=== PATIENT | female | born 1950 | race African-American/Black ===

== ENCOUNTER 2017-07-31 00:57 | Inpatient (IN) | payer MEDICARE, MEDICAID ==
[2017-07-31 02:32] LABS: Hemoglobin 3.3 g/dL (12.0-16.0)
[2017-07-31 02:44] LABS: #Basophils 0.1 thou/uL (0.0-0.2); #Eosinphils 0.1 thou/uL (0.0-0.7); #Lymphocytes 4.7 thou/uL (1.20-3.40); #Monocytes 0.5 thou/uL (0.11-0.59); #Neutrophils 8.1 thou/uL (1.40-6.50); %Basophils 0.7 % (0.0-1.0); %Eosinophils 0.5 % (0.0-10.0); %Lymphocytes 34.9 % (21.0-51.0); %Monocytes 3.9 % (0.0-10.0); %Neutrophils 60.1 % (42.0-75.0); Band 2 % (5-11); Hypochromia MARKED = >30 cells (100X) (0-5/hpf); Lymphocytes 25 % (21-51); MDiff Complete? YES; Mean Corpuscular HGB CONC 26.4 g/dL (32.0-36.0); Mean Corpuscular Hemoglobin 15.7 pg (27.0-31.0); Mean Corpuscular Volume 59.3 fl (81.0-99.0); Microcytosis MODERATE=15-30 cells (100X) (0-5/hpf); Monocytes 3 % (0-10); Neutrophil 68 % (42-75); PLT Morphology Comment Appears Adequate; Platelet Count 385 thou/uL (130-400); Red Blood Cell (RBC) Count 2.09 mill/uL (4.20-5.40); Reflex for Review?? YES; Tear Drops SLIGHT = 2-5 cells (100X) (0-1/hpf); White Blood Cell (WBC) Count 13.4 thou/uL (4.8-10.8)
[2017-07-31] MEDS ORDERED: Ondansetron HCl/PF 4 MG/2 ML Vial IVP PRN ×2 (03:36→04:50)
[2017-07-31] MEDS ORDERED: Ondansetron ODT 4 MG TAB SL PRN (03:36)
[2017-07-31] MEDS ORDERED: Sodium Chloride 0.9% 1,000 ML IV SCH (03:36)
[2017-07-31] MEDS ORDERED: Acetaminophen 325 MG TAB PO PRN ×2 (03:36→04:50)
[2017-07-31 03:41] VITALS: BMI 20.8
[2017-07-31] MEDS ORDERED: HYDROcodone/Acetaminophen 10/325 mg Tablet PO PRN (04:50)
[2017-07-31] MEDS ORDERED: HYDROcodone/Acetaminophen 5/325 mg Tablet PO PRN (04:50)
[2017-07-31] MEDS ORDERED: Ondansetron ODT 4 MG TAB PO PRN (04:50)
[2017-07-31 05:29] LABS: Iron Less than 8 ug/dL (50-170); Iron Binding Capacity, Total 290 mcg/dL (265-497)
[2017-07-31] MEDS: Sodium Chloride 0.9% 1,000 ML IV SCH ×2 (07:00→15:09)
[2017-07-31] MEDS: Famotidine/PF 20 mg/2ml Vial SLOW IVP SCH ×2 (08:23→20:11)
--- NOTE | 2017-07-31 11:29 | CT ---
CT ABDOMEN WITH CONTRAST CT PELVIS WITH CONTRAST: DATE: 07/31/17. TIME: 8:47 a.m. HISTORY: A 67-year-old female with generalized abdominal pain, anorexia, severe anemia. Rule out cancer. COMPARISON: None. TECHNIQUE: IV injection of iodinated contrast media: 100 mL of Isovue 370. Oral contrast media: Redicat. FINDINGS: The stomach is distended with a large volume of oral contrast media, superior to which there is a lay er of nonopacified ingested fluid contents mixed with air, superior to which there is a large volume of nondependent gas. Oral contrast material is present within the lumen of the gastric pylorus, whic h appears to be narrowed by mural thickening of the pylorus. This thickened pylorus appears to be of low attenuation, which is suggestive of edema. Alternatively, this could represent neoplasm. There are multiple moderately enlarged tha hepatis lymph nodes and mildly enlarged retroperitoneal lymph nodes adjacent to the aorta. The largest tha hepatis lymph node is approximately 2.5 x 1.5 x 2 cm (axial image 18 of 88, series 2; coronal image 49 of 123, series 601), and appears to have a ne crotic center. There are additional multiple suspicious-appearing, enlarged celiac axis lymph nodes. There is low attenuation throughout the gastrohepatic ligament. This could be edema or free fluid. The pancreas has a nonspecific, slightly heterogeneous attenuation, and is mildly posteriorly oziel sed by the distended stomach. There is a layer of low attenuation material, which could represent fr ee fluid, loculated fluid pocket, or intramural edema in the posterior gastric wall, with density of 42 HU, located between the stomach and the pancreatic body and tail. The oral contrast material is present throughout nondilated loops of small intestine within the abdom inal cavity and pelvic cavity. It has not yet reached the colon. Noninflamed segments of the append ix are visualized. There is a small amount of free fluid in the left paracolic gutter. There is an approximately 3 x 2 x 2 cm collection of low-density material (approximately 20 HU) in the left side of the cul-de-sac/ad nexa. This could be free fluid or a cystic lesion. Free fluid is slightly favored. A large amount of stool throughout the colon, especially in the rectum. Gallbladder is contracted. There is no portal vein thrombosis. No splenomegaly. Heavy atherosclerotic calcification of the abd ominal aorta without aneurysm. No hydronephrosis of the bilateral kidneys. No adrenal mass. The attenuation of hepatic segment 3 and 2 are slightly higher than that of the rest of the liver, wh ich is of slightly lower attenuation. There are a few small hypodense lesions in hepatic segment 3 o f the left lobe, each one slightly less than 1 cm in size, too small to definitively characterize. T hey could represents cysts. No discrete lesion is identified in the right lobe of the liver. No manny tructive osseous lesion is identified. There is moderate DJD of the right hip, and mild DJD of the l eft hip. No pleural effusion. IMPRESSION: 1. Mural thickening (edema versus tumor) of the pylorus, causing at least mild narrowing of the lume n of the pylorus, and causing gastric distention. 2. Low-attenuation material throughout the tha hepatis and along the gastrohepatic ligament region which appears to be edema. 3. multiple, pathologic tha hepatis and celiac lymph nodes, suspicious for malignancy. 4. Small volume of ascites. BAYLEE Diggs POS: [facility]
--- NOTE | 2017-07-31 12:29 | HP ---
DATE OF ADMISSION: 07/31/2017 TIME OF SERVICE: 03:45. CHIEF COMPLAINT: Weakness. HISTORY OF PRESENT ILLNESS: Ms. Guzman is a 67-year-old Citizen Of [place] female, who with a history of hig h blood pressure that she does not take medicines for, rarely goes to the doctor. She has no primary care physician and was seen as a city call patient. Patient presents to the emergency department today for 3 months of increasing weakness and fatigue th at seemed getting even worse over the last 3 weeks. She describes a several-day history of fatigue t o the point where she did not really feel like doing anything at all and decided to come to the emerg ency department for evaluation. In the emergency department, workup showed chemistries were fairly normal. However, her hemoglobin a t the outside emergency department was 3.8. She was transferred here for further workup and evaluati on. On arrival here, she was afebrile with stable vital signs. Repeat CBC showed her hemoglobin down to 3.3 after receiving the fluids. We were called for admission. The patient denies any GI bleeding, no chest pain, no shortness of breath. She has had some epigastr ic pain that seemed to go up in the chest a little bit on occasion. During those times she will beco me nauseated and threw up some brown material that was not foul smelling. She denied any bright red blood in her vomitus, denied any coffee-ground emesis. She has not had any lower GI bleeding, melena , or hematochezia. She states, for the last several months, she has had this epigastric pain and nausea and vomiting, ortiz s really been unable to eat and has not had any appetite. She states she lost around 100 pounds over the last 3-4 months. She has had no other current complaints. PAST MEDICAL HISTORY: Hypertension. PAST SURGICAL HISTORY: Include x1. HOME MEDICATIONS: None. She takes Advil as needed. ALLERGIES: NKDA. FAMILY HISTORY: Negative for clotting or bleeding disorder. No immune dysfunction. Her mom in her 30s of some sort of cancer. SOCIAL HISTORY: Significant for tobacco, about 1 pack a day for 30 years or so. No alcohol or IV dr ugs. REVIEW OF SYSTEMS: A 10-point review of systems was performed, negative for all other systems except as stated as per HPI. PHYSICAL EXAMINATION: VITAL 1SIGNS: Temperature 98.9, pulse 96, blood pressure 145/64, respiratory rate 16, satting 100% o n room air. GENERAL: She is awake. She is alert. She is oriented x3. She is a cachectic-looking chronically i ll-appearing -Citizen Of [place] female. She is not in any acute distress. HEENT: Normocephalic, atraumatic. Pupils are equal and reactive bilaterally. Mucous membranes are moist. Teeth are in poor repair. NECK: Supple. She had no lymphadenopathy, JVD, or thyromegaly. LUNGS: Clear to auscultation bilaterally. There are no wheezes, no rales, no rhonchi. No prolonged expiratory phase. CARDIOVASCULAR: She is normocardic and regular. She does have a 2/6 systolic ejection murmur, best heard at the right upper sternal border. ABDOMEN: Soft; it is nontender. She has good bowel sounds in all 4 quadrants. EXTREMITIES: Show no cyanosis, no clubbing, and no edema. SKIN: Warm, moist, well perfused. It hangs very loosely on her frame. MUSCULOSKELETAL: Exam is normal to inspection. Large joints appear uninflamed; there are no palpabl e effusions. NEUROLOGIC: Cranial nerves II-XII grossly intact without any focal neurologic deficits. She has 4/5 strength in all 4 of her extremities. Speech pattern is normal. LABORATORY DATA: Sodium 133, potassium 3.4, chloride 96, bicarbonate 25, BUN 9, creatinine 0.74. Gl ucose 104. Calcium 8.6. Magnesium normal at 1.9 and phosphorus 4.0. Liver function normal except f or an albumin of 2.9. CBC here showed a white count of 13.4, down from 15.4 at the outside ER; hemoglobin 3.3, down from 3. 8; and hematocrit of 12.4. Platelet count is 388,461. She has 60% granulocytes, 2% bands, 25% lymph ocytes. Her BNP was normal at 86.7, CK-MB normal at 0.5, troponin I undetectable, lipase 35. IMAGING: Brain CT showed no acute intracranial abnormalities. Chest x-ray showed aortic arch calcif ications, but otherwise unremarkable. ASSESSMENT AND PLAN: 1. Severe anemia. She is microcytic and hyperchromic. I will get iron studies, and she is going to get 3 units of blood transfused. She does not appear to have any acute blood loss. We will supplem ent iron if her iron stores are depleted, which I suspect they are. Given that she is not eating wel l and has lost 100 pounds, that could certainly have an impact. 2. Severe protein-calorie malnutrition as above. 3. Hypertension, not on any current medications. We will watch. 4. Anorexia: We will get a CT scan of the abdomen and pelvis with contrast. Given her marked weigh t loss, recurrent nausea and vomiting, severe anemia, I certainly suspect there may be an occult avtar gnancy. We will search.
--- NOTE | 2017-07-31 13:14 | PDOC.PN ---
- Subjective Encounter Start Date: 07/31/17 Encounter Start Time: 09:00 Subjective: recieving blood 2nd unit -: no sob, has progressively lost weight -: no bleeding per rectum or vagina - Objective Resuscitation Status: Resuscitation Status FULL:Full Resuscitation MAR Reviewed: Yes Vital Signs & Weight: Vital Signs (12 hours) Temp Pulse Pulse Resp BP BP BP 07/31/17 12:04 99.5 F 80 16 146/65 H 07/31/17 11:54 98.8 F 83 16 102/53 L 07/31/17 11:40 98.7 F 83 16 07/31/17 09:55 99.0 F 88 16 136/70 07/31/17 09:40 99.2 F 85 15 102/46 L 07/31/17 07:15 99.4 F 86 16 07/31/17 07:00 99.4 F 86 86 16 116/69 07/31/17 04:07 99.2 F 100 18 128/60 07/31/17 03:54 99.4 F 106 H 18 145/66 H 07/31/17 03:34 99.2 F 106 H 18 BP Pulse Ox 07/31/17 12:04 100 07/31/17 11:54 100 07/31/17 11:40 139/63 100 07/31/17 09:55 100 07/31/17 09:40 100 07/31/17 07:15 100 07/31/17 07:00 116/69 100 07/31/17 04:07 07/31/17 03:54 07/31/17 03:34 100 I&O: 07/30/17 07/31/17 08/01/17 06:59 06:59 06:59 Intake Total 0 1110 Balance 0 1110 Result Diagrams: 07/31/17 01:54 Phys Exam - Physical Examination HEENT: PERRLA, sclera anicteric pallor+ Neck: no JVD, supple Respiratory: no wheezing, no rales rhonchi+ Cardiovascular: RRR, no significant murmur Gastrointestinal: soft, non-tender, no distention, positive bowel sounds Musculoskeletal: no edema, pulses present Neurological: non-focal, moves all 4 limbs Psychiatric: A&O x 3 Dx/Plan (1) Severe anemia Code(s): D64.9 - ANEMIA, UNSPECIFIED Status: Acute Comment: iron def (2) Gastric outlet obstruction Code(s): K31.1 - ADULT HYPERTROPHIC PYLORIC STENOSIS Status: Acute (3) Weight loss Status: Chronic (4) HTN (hypertension) Code(s): I10 - ESSENTIAL (PRIMARY) HYPERTENSION Status: Chronic Qualifiers: Hypertension type: essential hypertension Qualified Code(s): I10 - Essential (primary) hypertension (5) Tobacco abuse Code(s): Z72.0 - TOBACCO USE Status: Chronic - Plan CT abd results noted -: d/w -: will get CT chest as well in view of chronic smoking -: h/h after the 3rd unit of blood -: serum iron is less than 8, ferritin 13, mcv is 59 * . Review of Systems - Medications/Allergies Allergies/Adverse Reactions: Allergies Allergy/AdvReac Type Severity Reaction Status Date / Time No Known Allergies Allergy Verified 07/31/17 03:35 Medications: Current Medications Acetaminophen (Tylenol) 650 mg PO Q4H PRN PRN Reason: Headache/Fever or Pain Hydrocodone Bitart/Acetaminophen ([place] 10/325) 1 tab PO Q4H PRN PRN Reason: Severe Pain (7-10) Hydrocodone Bitart/Acetaminophen ([place] 5/325) 1 tab PO Q4H PRN PRN Reason: Moderate Pain (4-6) Famotidine (Pepcid) 20 mg SLOW IVP Q12HR [facility] Last Admin: 07/31/17 08:23 Dose: 20 mg Sodium Chloride (Normal Saline 0.9%) 1,000 mls @ 100 mls/hr IV .Q10H [facility] Last Admin: 07/31/17 07:00 Dose: 1,000 mls Influenza Virus Vaccine (Fluzone High-Dose Syr) 0.5 ml IM .ONCE ONE Stop: 08/01/17 09:01 Ondansetron HCl (Zofran Odt) 4 mg PO Q6H PRN PRN Reason: Nausea/Vomiting Ondansetron HCl (Zofran) 4 mg IVP Q6H PRN PRN Reason: Nausea/Vomiting Pneumococcal Polyvalent Vaccine (Pneumovax 23) 0.5 ml IM .ONCE ONE Stop: 08/01/17 09:01 Sodium Chloride (Flush - Normal Saline) 10 ml IVF PRN PRN PRN Reason: Saline Flush
[2017-07-31] MEDS ORDERED: Furosemide 20 MG/2 ML VIAL SLOW IVP SCH (15:00)
[2017-07-31 16:28] LABS: #Basophils 0.1 thou/uL (0.0-0.2); #Eosinphils 0.1 thou/uL (0.0-0.7); #Monocytes 0.6 thou/uL (0.11-0.59); #Neutrophils 8.5 thou/uL (1.40-6.50); %Basophils 0.9 % (0.0-1.0); %Eosinophils 0.9 % (0.0-10.0); %Lymphocytes 38.8 % (21.0-51.0); %Monocytes 4.2 % (0.0-10.0); %Neutrophils 55.2 % (42.0-75.0); Hemoglobin 8.6 g/dL (12.0-16.0); Mean Corpuscular HGB CONC 29.1 g/dL (32.0-36.0); Mean Corpuscular Hemoglobin 22.2 pg (27.0-31.0); Mean Corpuscular Volume 76.1 fl (81.0-99.0); Mean Platelet Volume 10.1 fL (7.4-10.4); Platelet Count 352 thou/uL (130-400); RBC Distribution Width 25.6 % (11.5-14.5); Red Blood Cell (RBC) Count 3.87 mill/uL (4.20-5.40); White Blood Cell (WBC) Count 15.4 thou/uL (4.8-10.8)
[2017-07-31 16:46] LABS: Anisocytosis MODERATE=16-30 cells (100X) (0-5/hpf); Bite Cells SLIGHT = 2-5 cells (100X) (0-1/hpf); Hypochromia MODERATE=16-30 cells (100X) (0-5/hpf); MDiff Complete? YES; Microcytosis SLIGHT = 6-15 cells (100X) (0-5/hpf); Ovalocytes SLIGHT = 2-5 cells (100X) (0-1/hpf); PLT Morphology Comment Appears Adequate; Poikilocytosis SLIGHT = 6-15 cells (100X) (0-5/hpf); Polychromasia MODERATE = 3-4 cells (100X) (0-2/hpf); Schistocytes SLIGHT = 2-5 cells (100X) (0-1/hpf); Target Cells MODERATE= 6-15 cells (100X) (0-1/hpf); Tear Drops SLIGHT = 2-5 cells (100X) (0-1/hpf)
[2017-07-31] MEDS ORDERED: GoLYTELY 4,000 ml Bottle PO SCH (17:45)
--- NOTE | 2017-07-31 18:25 | CT ---
CT OF THE THORAX WITHOUT CONTRAST: Indication: Rule out malignancy. Comparison: None. FINDINGS: Lack of IV contrast limits evaluation of the mediastinum for lymphadenopathy. There are vascular calc ifications along the coronary arteries of the thoracic aorta. Calcified granulomas within the spleen. Please see the separately dictated CT of the abdomen and pelvis with IV contrast for further details concerning the abdomen. There is no suspicious pulmonary nodule identified. There is some tree and b ud type nodularity seen within the lateral aspect of the superior segment of the right lower lobe on image 32 or series 3. There are scattered and degenerative and osseous change. IMPRESSION: 1. No suspicious finding by CT to suggest metastatic disease. 2. There is some tree and bud nodularity within the right lower lobe. This can be related to a bronch iolitis or infectious inflammatory etiology. Metastatic disease is felt to be less likely. 3. Findings of prior granulomatous disease. POS: [facility]
--- NOTE | 2017-07-31 18:45 | CON ---
DATE OF CONSULTATION: 07/31/2017 GASTROENTEROLOGY CONSULTATION CHIEF COMPLAINT: Nausea, vomiting, and anemia. HISTORY OF PRESENT ILLNESS: Ms. Guzman is a 67-year-old woman who has had weakness, worsening over the last few weeks to months. She has had chronic nausea and loss of appetite. She tolerates liqui ds okay, but vomits solids. She has lost at least 25 pounds over the last few months. She is really unable to quantify the amount of weight loss. She has had normal bowel movements, soft brown stools most days. She has had some epigastric sharp aching pain that comes and goes, lasts for hours at a time and radiates up towards her chest. The pain worsens after eating. PAST MEDICAL HISTORY: Hypertension. PAST SURGICAL HISTORY: . FAMILY HISTORY: Negative for GI malignancy. SOCIAL HISTORY: She has smoked a pack a day. No alcohol or drugs. ALLERGIES: No known drug allergies. MEDICATIONS: Prior to admission, occasional use of NSAIDs, just a few times per month. REVIEW OF SYSTEMS: Negative x10 systems review except as stated in the history of present illness. PHYSICAL EXAMINATION: VITAL SIGNS: Temperature 98.3, pulse 78, blood pressure 141/67. GENERAL: She is in no acute distress. She is awake and alert. She appears thin with muscle wasting . EYES: Have no scleral icterus. OROPHARYNX: Clear without lesions. She has poor dentition with multiple loose teeth. NECK: She has no cervical or supraclavicular lymphadenopathy. LUNGS: Clear to auscultation bilaterally. HEART: Regular rate and rhythm without murmur. ABDOMEN: Soft, mild tenderness in the epigastric region without guarding. Bowel sounds are present. EXTREMITIES: No lower extremity edema. NEUROLOGIC: Cranial nerves are grossly intact. LABORATORY DATA: White blood cell count 15.4, hemoglobin is 8.6 after 2 units transfusion, hemoglobi n before that was 3.3, but this was likely falsely, low platelets 352. Ferritin 13.6, iron less than 8, TIBC 290, MCV was 76, creatinine 0.74, albumin 2.9. IMAGING: She had a CT scan of the abdomen and pelvis which showed thickening around the pylorus with gastric distention, low attenuation areas were noted around the tha hepatis concerning for maligna nt lymph nodes, small volume ascites was noted. IMPRESSION: 1. Severe iron deficiency anemia, status post transfusion. 2. Epigastric pain with large amount of weight loss and CT scan showing thickening around the pylori c area with concern for metastatic lymph nodes. All this is concerning for gastric cancer. RECOMMENDATIONS: 1. We will plan EGD tomorrow. 2. Given the iron deficiency anemia and concern for GI malignancy and potential need for further con sideration for chemotherapy other treatments in the future, I will plan to evaluate her colon at the same time if she can tolerate the bowel prep. We will perform colonoscopy at the time of the EGD yg rrow.
[2017-08-01 05:56] LABS: ALT (SGPT) 13 U/L (8-55); AST (SGOT) 31 U/L (5-34); Albumin 2.3 g/dL (3.4-4.8); Alkaline Phosphatase 73 U/L (40-150); Anion Gap 11 mmol/L (10-20); BUN (Urea Nitrogen) 4 mg/dL (9.8-20.1); Bilirubin, Total 0.6 mg/dL (0.2-1.2); Calc. Creatinine Clearance 71 mL/min (70-130); Calcium 8.5 mg/dL (7.8-10.44); Carbon Dioxide 27 mmol/L (23-31); Chloride 101 mmol/L (98-107); Estimated GFR-MDRD Greater than 90; Globulin 3.8 g/dL (2.4-3.5); Glucose 85 mg/dL (80-115); Potassium 3.5 mmol/L (3.5-5.1); Protein, Total 6.1 g/dL (6.0-8.3); Sodium 135 mmol/L (136-145)
[2017-08-01] MEDS ORDERED: FLU VACC TS2017-18 (>65YR) 0.5 ML SYRINGE IM ONE (09:00)
[2017-08-01 09:30] LABS: Hemoglobin 8.1 g/dL (12.0-16.0); Mean Corpuscular HGB CONC 29.5 g/dL (32.0-36.0); Mean Corpuscular Hemoglobin 21.9 pg (27.0-31.0); Mean Corpuscular Volume 74.2 fl (81.0-99.0); Mean Platelet Volume 10.8 fL (7.4-10.4); Platelet Count 306 thou/uL (130-400); RBC Distribution Width 25.8 % (11.5-14.5); Red Blood Cell (RBC) Count 3.69 mill/uL (4.20-5.40); White Blood Cell (WBC) Count 11.5 thou/uL (4.8-10.8)
[2017-08-01] MEDS: Famotidine/PF 20 mg/2ml Vial SLOW IVP SCH (09:36)
--- NOTE | 2017-08-01 10:13 | PDOC.PN ---
- Subjective Encounter Start Date: 08/01/17 Encounter Start Time: 10:00 Subjective: Patient doing better. Able to tolerate Golytely overnight and stool -: clear water this AM. - Objective Resuscitation Status: Resuscitation Status FULL:Full Resuscitation MAR Reviewed: Yes Vital Signs & Weight: Vital Signs (12 hours) Temp Pulse Resp BP Pulse Ox 08/01/17 08:00 98.6 F 70 16 99 08/01/17 07:40 98.6 F 70 16 167/73 H 99 08/01/17 04:08 99.1 F 75 16 173/77 H 100 07/31/17 23:42 99.4 F 75 16 125/60 100 Weight Admit Weight 106 lb 11.2 oz Weight 106 lb 11.2 oz I&O: 07/31/17 08/01/17 08/02/17 06:59 06:59 06:59 Intake Total 0 4210 Output Total 1500 Balance 0 2710 Result Diagrams: 08/01/17 05:00 08/01/17 05:00 Phys Exam - Physical Examination Constitutional: NAD thin HEENT: moist MMs Respiratory: no wheezing, no rales, no rhonchi, clear to auscultation bilateral Cardiovascular: RRR, no significant murmur Gastrointestinal: soft, positive bowel sounds Neurological: non-focal, moves all 4 limbs Psychiatric: normal affect, A&O x 3 Dx/Plan (1) Severe anemia Code(s): D64.9 - ANEMIA, UNSPECIFIED Status: Acute Comment: iron def, improved s/p transfusion (2) Gastric outlet obstruction Code(s): K31.1 - ADULT HYPERTROPHIC PYLORIC STENOSIS Status: Acute Comment: concern for gastric cancer with thickening on CT and lymphadenopathy (3) Weight loss Status: Chronic (4) HTN (hypertension) Code(s): I10 - ESSENTIAL (PRIMARY) HYPERTENSION Status: Chronic Qualifiers: Hypertension type: essential hypertension Qualified Code(s): I10 - Essential (primary) hypertension (5) Tobacco abuse Code(s): Z72.0 - TOBACCO USE Status: Chronic - Plan cont current plan of care EGD and Colonoscopy today -: Can transfer to medical since H/H above 7 now * . - Discharge Day Encounter end time: 10:15
[2017-08-01 10:27] LABS: Anisocytosis MODERATE=16-30 cells (100X) (0-5/hpf); Band 1 % (5-11); Hypochromia MODERATE=16-30 cells (100X) (0-5/hpf); Lymphocytes 46 % (21-51); MDiff Complete? YES; Microcytosis SLIGHT = 6-15 cells (100X) (0-5/hpf); Monocytes 3 % (0-10); Neutrophil 48 % (42-75); Polychromasia SLIGHT = 2-3 cells (100X) (0-2/hpf); Reactive Lymphocytes 1 % (0-10); Spherocytes SLIGHT = 1-5 cells (100X) (None Seen)
--- NOTE | 2017-08-01 13:46 | OP ---
DATE OF PROCEDURE: 08/01/2017 PROCEDURE PERFORMED: Esophagogastroduodenoscopy with biopsy and aborted colonoscopy. PROCEDURE IN DETAIL: Informed consent was obtained from the patient. She was sedated with total int ravenous anesthesia. The bite block was placed and the endoscope was advanced easily to the second p ortion of the duodenum and retroflexion was performed in the stomach. The esophagus had diffuse laila al esophagitis. There were white plaques scattered throughout the esophagus. Biopsies were not obta ined as the diagnosis was obvious. The GE junction was normal. There was a very large ulcerated mas s encompassing the entire antrum and the stomach. Biopsies were obtained. Retroflexed views in the stomach were negative. The first and second portions of the duodenum were unremarkable. The patient was turned around. Rectal exam was performed and was normal. The colonoscope was advanced to the d istal sigmoid. There was too much stool retained in the colon to obtain adequate views. The procedu re was aborted. IMPRESSION: 1. Very large ulcerated mass occupying the entire antrum. Biopsies obtained. 2. Fungal esophagitis. 3. Colonoscopy aborted due to poor prep. RECOMMENDATIONS: 1. Await histopathology. 2. Oncology consultation. 3. Fluconazole 400 mg today and then 200 mg daily for 13 more days.
[2017-08-01] MEDS ORDERED: Fluconazole In NaCl,Iso-Osm 400 MG in Premix Bag 1 BAG IVPB SCH ×2 (14:30)
[2017-08-01] MEDS ORDERED: hydrALAZINE 20 MG/ML VIAL SLOW IVP PRN (15:04)
[2017-08-01] MEDS ORDERED: Lisinopril 20 MG TAB PO SCH (16:15)
[2017-08-01] MEDS ORDERED: Propofol 200 MG/20 ML VIAL ONE (17:26)
--- NOTE | 2017-08-01 20:23 | CON ---
DATE OF CONSULTATION: 08/01/2017 REASON FOR CONSULTATION: Gastric mass. HISTORY OF PRESENT ILLNESS: Ms. Guzman is a 67-year-old -[place] female who presented to [facility] emergency room in [place] with weakness and fatigue. In the emergency room, her hemoglobin was 3 .8. She was transfused 3 units of packed RBCs. She denies any bleeding. She does admit to signific ant weight loss over the last [address] She had a [address] scan performed of her abdomen and pelvis that s howed thickening of the pylorus. There was also some portal celiac lymphadenopathy. She underwent e ndoscopic studies this morning. The EGD showed a large ulcerated mass occupying the entire antrum. Biopsies were obtained and are pending. She had a fungal esophagitis. A colonoscopy was planned; ho margarettever, she had too much stool for adequate views, so that was aborted. The patient denies any signif icant medical history. Her mother and her brother did have cancer, but she is unaware of what type. She denies any chest pain or shortness of breath, denies any abdominal pain. PAST MEDICAL HISTORY: Hypertension. PAST SURGICAL HISTORY: . ALLERGIES: No known drug allergies. HOME MEDICATIONS: None. REVIEW OF SYSTEMS: A 12 point review of systems is negative. PHYSICAL EXAMINATION: VITAL SIGNS: Temperature is 98.6, pulse is 66, respiratory rate 16, BP is 184/81. She is 99% on joe m air. GENERAL: Well-developed, well-nourished female in no acute distress. HEENT: Normocephalic, atraumatic. Pupils are equal and reactive to light. She has poor dentition. NECK: Supple. CARDIOVASCULAR: Regular rate and rhythm. LUNGS: Clear. ABDOMEN: Soft, nontender, bowel sounds are positive. EXTREMITIES: No clubbing, cyanosis or edema. SKIN: No rash. HEMATOLOGIC: No petechia or purpura. NEUROLOGIC: Nonfocal. PSYCHIATRIC: The patient is alert and oriented and answers questions appropriately. PERTINENT LABORATORY AND X-RAYS: Current WBCs are 11.5, hemoglobin 8.1, hematocrit 27.4, platelet co unt 306,000, 48% neutrophils, 46% lymphocytes. Sodium is 135, potassium 3.5, chloride 101, CO2 is 27 , BUN is 4, creatinine 0.6, calcium is 8.5, phosphorus 4.0, magnesium 1.9. Iron is less than 8, TIBC is 290, ferritin is 13, total bilirubin is 0.6, AST is 31, ALT is 13, alkaline phosphatase is 73. T roponin is negative. Serum total protein is 6.1, albumin 2.3, globulin 3.8, lipase is 35. Urine was negative for bacteria. Her brain CT was negative for metastasis. Her chest CT showed no metastatic disease. IMPRESSION: 1. Gastric antrum mass, biopsy is pending. 2. Severe anemia secondary to #1. DISCUSSION: The patient's pathology is currently pending. We will await molecular studies, will be checking HER2 and further treatment will be based on those results. She has an unresectable disease. However, she is a candidate for chemotherapy. Staging will be based on pathological review. We wi ll continue to follow her CBC and transfuse as needed. Case was discussed with Dr. Kumar and with aminta patient. We will follow her hospital course closely. Thank you for the consult.
[2017-08-02 06:30] LABS: ALT (SGPT) 14 U/L (8-55); AST (SGOT) 26 U/L (5-34); Albumin 2.3 g/dL (3.4-4.8); Alkaline Phosphatase 63 U/L (40-150); Anion Gap 11 mmol/L (10-20); BUN (Urea Nitrogen) 8 mg/dL (9.8-20.1); Bilirubin, Total 0.3 mg/dL (0.2-1.2); Calc. Creatinine Clearance 70 mL/min (70-130); Calcium 8.4 mg/dL (7.8-10.44); Carbon Dioxide 29 mmol/L (23-31); Chloride 99 mmol/L (98-107); Estimated GFR-MDRD Greater than 90; Globulin 3.4 g/dL (2.4-3.5); Glucose 103 mg/dL (80-115); Potassium 3.8 mmol/L (3.5-5.1); Protein, Total 5.7 g/dL (6.0-8.3); Sodium 135 mmol/L (136-145)
[2017-08-02 07:18] LABS: #Basophils 0.1 thou/uL (0.0-0.2); #Eosinphils 0.2 thou/uL (0.0-0.7); #Lymphocytes 5.4 thou/uL (1.20-3.40); #Monocytes 0.6 thou/uL (0.11-0.59); %Basophils 0.8 % (0.0-1.0); %Eosinophils 1.3 % (0.0-10.0); %Lymphocytes 43.8 % (21.0-51.0); %Monocytes 4.8 % (0.0-10.0); %Neutrophils 49.3 % (42.0-75.0); Anisocytosis MODERATE=16-30 cells (100X) (0-5/hpf); Hemoglobin 7.4 g/dL (12.0-16.0); Hypochromia MODERATE=16-30 cells (100X) (0-5/hpf); MDiff Complete? YES; Mean Corpuscular Hemoglobin 22.3 pg (27.0-31.0); Mean Corpuscular Volume 74.1 fl (81.0-99.0); Mean Platelet Volume 4.5 fL (7.4-10.4); Platelet Count 232 thou/uL (130-400); Polychromasia MODERATE = 3-4 cells (100X) (0-2/hpf); RBC Distribution Width 26.5 % (11.5-14.5); Red Blood Cell (RBC) Count 3.33 mill/uL (4.20-5.40); Spherocytes SLIGHT = 1-5 cells (100X) (None Seen); White Blood Cell (WBC) Count 12.2 thou/uL (4.8-10.8)
--- NOTE | 2017-08-02 07:58 | PDOC.PN ---
- Subjective Encounter Start Date: 08/02/17 Encounter Start Time: 11:00 Subjective: Patient feeling a little better. Some stomach bloating since EGD but not -: bad. No bleeding. - Objective Resuscitation Status: Resuscitation Status FULL:Full Resuscitation MAR Reviewed: Yes Vital Signs & Weight: Vital Signs (12 hours) Temp Pulse Resp BP Pulse Ox 08/02/17 07:00 99.3 F 78 16 148/67 H 99 08/02/17 00:24 98.8 F 77 18 173/81 H 100 08/01/17 20:00 98.8 F 79 18 99 Weight Admit Weight 106 lb 11.2 oz Weight 106 lb 11.2 oz I&O: 08/01/17 08/02/17 08/03/17 06:59 06:59 06:59 Intake Total 4210 650 Output Total 1500 Balance 2710 650 Result Diagrams: 08/02/17 05:36 08/02/17 05:36 Phys Exam - Physical Examination Constitutional: NAD HEENT: moist MMs Respiratory: no wheezing, no rales, no rhonchi Cardiovascular: RRR, no significant murmur Gastrointestinal: soft, positive bowel sounds mild TTP CEDRIC without guarding Neurological: non-focal, moves all 4 limbs Psychiatric: A&O x 3 Deviation from normal: a bit depressed affect Dx/Plan (1) Gastric cancer Status: Acute Comment: biopsy pending, Oncology following, will need outpatient followup (2) Severe anemia Code(s): D64.9 - ANEMIA, UNSPECIFIED Status: Acute Comment: iron def, improved s/p transfusion, down a little today, monitor overnight and transfuse if further drop below hgb 7 (3) Gastric outlet obstruction Code(s): K31.1 - ADULT HYPERTROPHIC PYLORIC STENOSIS Status: Acute Comment: Due to gastric cancer (4) Weight loss Status: Chronic (5) HTN (hypertension) Code(s): I10 - ESSENTIAL (PRIMARY) HYPERTENSION Status: Chronic Qualifiers: Hypertension type: essential hypertension Qualified Code(s): I10 - Essential (primary) hypertension (6) Tobacco abuse Code(s): Z72.0 - TOBACCO USE Status: Chronic - Plan cont current plan of care, PT/OT, DVT proph w/SCDs H/H dropped a bit today, will need to make sure stabilized before can -: consider d/c with Heme/Onc followup for cancer. * . - Discharge Day Encounter end time: 11:30
[2017-08-02] MEDS: Lisinopril 20 MG TAB PO SCH (08:54)
[2017-08-02] MEDS: Fluconazole 100 MG TAB PO SCH (08:54)
--- NOTE | 2017-08-02 23:09 | PRG ---
DATE OF SERVICE: 08/02/2017 SUBJECTIVE: Ms. Guzman states that she tolerated a solid diet today. She has no abdominal pain. Her hemoglobin did drop down further today. OBJECTIVE: ABDOMEN: Soft, nontender, nondistended, bowel sounds are present. LUNGS: Clear to auscultation bilaterally. HEART: Regular rate and rhythm. EXTREMITIES: No lower extremity edema. IMPRESSION: 1. Gastric adenocarcinoma. She has a large ulcerative mass occupying majority of the antrum. The p rognosis is extremely poor with this. She was offered chemotherapy by the Oncology Service; however, she states that she wants to consider a second opinion before taking chemotherapy. It seems to me t hat the second opinion is unlikely, she will actually seek this, however, we can certainly fax record s to [facility] if she wishes. 2. Anemia of chronic gastrointestinal blood loss. We will give a unit of blood this evening. 3. She can potentially discharge home tomorrow. I will sign off for now. Please call if GI can be of assistance.
[2017-08-03 05:03] LABS: #Eosinphils 0.2 thou/uL (0.0-0.7); #Lymphocytes 4.5 thou/uL (1.20-3.40); #Monocytes 0.7 thou/uL (0.11-0.59); #Neutrophils 6.6 thou/uL (1.40-6.50); %Basophils 0.4 % (0.0-1.0); %Eosinophils 1.9 % (0.0-10.0); %Lymphocytes 37.4 % (21.0-51.0); %Monocytes 5.6 % (0.0-10.0); %Neutrophils 54.7 % (42.0-75.0); Anisocytosis MODERATE=16-30 cells (100X) (0-5/hpf); Hemoglobin 8.8 g/dL (12.0-16.0); Hypochromia MODERATE=16-30 cells (100X) (0-5/hpf); MDiff Complete? YES; Mean Corpuscular HGB CONC 30.1 g/dL (32.0-36.0); Mean Corpuscular Hemoglobin 23.3 pg (27.0-31.0); Mean Corpuscular Volume 77.4 fl (81.0-99.0); Mean Platelet Volume 4.5 fL (7.4-10.4); Microcytosis SLIGHT = 6-15 cells (100X) (0-5/hpf); Platelet Count 213 thou/uL (130-400); RBC Distribution Width 26.1 % (11.5-14.5); Red Blood Cell (RBC) Count 3.78 mill/uL (4.20-5.40); Tear Drops SLIGHT = 2-5 cells (100X) (0-1/hpf)
--- NOTE | 2017-08-03 07:25 | PDOC.PN ---
- Subjective Encounter Start Date: 08/03/17 Encounter Start Time: 09:00 Subjective: No complaints. Feeling better. - Objective Resuscitation Status: Resuscitation Status FULL:Full Resuscitation MAR Reviewed: Yes Vital Signs & Weight: Vital Signs (12 hours) Temp Pulse Pulse Resp BP BP Pulse Ox 08/03/17 00:05 97.5 F L 70 18 174/81 H 100 08/02/17 22:06 99.5 F 77 16 179/84 H 08/02/17 20:00 97.5 F L 77 16 100 Weight Admit Weight 106 lb 11.2 oz Weight 106 lb 11.2 oz I&O: 08/02/17 08/03/17 08/04/17 06:59 06:59 06:59 Intake Total 650 900 Balance 650 900 Result Diagrams: 08/03/17 03:40 08/02/17 05:36 Phys Exam - Physical Examination Constitutional: NAD HEENT: moist MMs Breathing easily, no tachypnea Cardiovascular: RRR Neurological: non-focal, moves all 4 limbs Psychiatric: normal affect, A&O x 3 Dx/Plan (1) Gastric cancer Status: Acute Comment: biopsy pending, Oncology following, will need outpatient followup (2) Severe anemia Code(s): D64.9 - ANEMIA, UNSPECIFIED Status: Acute Comment: iron def, improved s/p transfusion, greater than 8 today so can d/c (3) Gastric outlet obstruction Code(s): K31.1 - ADULT HYPERTROPHIC PYLORIC STENOSIS Status: Acute Comment: Due to gastric cancer (4) Weight loss Status: Chronic (5) HTN (hypertension) Code(s): I10 - ESSENTIAL (PRIMARY) HYPERTENSION Status: Chronic Qualifiers: Hypertension type: essential hypertension Qualified Code(s): I10 - Essential (primary) hypertension (6) Tobacco abuse Code(s): Z72.0 - TOBACCO USE Status: Chronic - Plan cont current plan of care D/C home. Follow up with oncology as outpatient. * . - Discharge Day Encounter end time: 09:25
[2017-08-03] MEDS: Lisinopril 20 MG TAB PO SCH (09:39)
[2017-08-03] MEDS: Fluconazole 100 MG TAB PO SCH (09:39)
--- NOTE | 2017-08-03 10:25 | DIS ---
PRIMARY CARE PHYSICIAN: [facility]. DIAGNOSES ON ADMISSION: 1. Severe microcytic anemia. 2. Severe protein calorie malnutrition. 3. Hypertension. 4. Anorexia. DISCHARGE DIAGNOSES: 1. Invasive adenocarcinoma of the stomach. 2. Iron deficiency anemia, improved. 3. Severe protein calorie malnutrition. 4. Hypertension. 5. Tobacco abuse. 6. Fungal esophagitis. PROCEDURES: 1. EGD with biopsy showing a very large ulcerative mass occupying the entire antrum and also fungal esophagitis. 2. Colonoscopy aborted secondary to poor prep. 3. CT of the abdomen and pelvis with contrast showing mural thickening of the edema versus tumor of the pylorus causing at least mild narrowing of the lumen of the pylorus and gastric distention along with low attenuation material appearing edematous around the tha hepatis and gastrohepatic ligament and multiple pathologic tha hepatis and celiac lymph nodes suspicious for malignancy and a small v olume of ascites. CONSULTATIONS: 1. Gastroenterology, Dr. Kumar. 2. Oncology, Dr. Hendrickson. PERTINENT LABORATORY: Hemoglobin initially 3.3 on admission, up to 8.8 after multiple units of trans fusions and stable at discharge. Albumin low at 2.3. Iron study showed iron less than 8, total iron binding capacity of 291, immeasurable percent saturation due to its low percent. Pathology on gastric mass biopsy reveals invasive moderately differentiated gastric adenocarcinoma, n egative for H. pylori with an HER2 testing pending. SUMMARY OF HOSPITAL COURSE: This is a 67-year-old female with history of hypertensi on who does not take medication and rarely goes to the doctor, presented to the emergency room with 3 months of increasing weakness, fatigue, worse over the last 3 weeks. She also notes about a 100 po und weight loss over the last 3-4 months. The patient was found to have a hemoglobin of 3.8. She wa s transfused 3 units in the emergency room with it coming up to the low 8s. It did drop a little bit later in the hospitalization to the mid 7s so she was given 1 more unit, and it was 8.8 at discharge . The patient had a CT of the abdomen and pelvis with the above results. Dr. Kumar was consulted. He did do an EGD with the above results. Attempted a colonoscopy as well, but with poor prep. Dr. Jenna alfonso was consulted and Catherine Solis did come see the patient in the hospital. She determined that this was unresectable disease, but the patient was a candidate for chemotherapy. The biopsy results did come back with adenocarcinoma as above. The patient is not sure if she wants to do chemotherapy and wanted to get a second opinion and is considering going to [facility] after discharge for another Oncology opinion. She is stable from blood count. Her ambulatory status was good and the day of discharge she is being discharged home. Of note, her blood pressure did come up to significantly during the hospitalization after her transfusion and resolution of her severe anemia with blood pressure, all the way up as high as the 200s systolic, though it was asymptomatic. She w as started on lisinopril 20 mg daily and is now being started metoprolol XL 50 mg daily. She is to jenna leon up with a primary care physician for continued management of her high blood pressure upon disch arge. DISCHARGE MANAGEMENT: Discharged home. FOLLOWUP: Follow up with Dr. Hendrickson's office in the next 7-14 days. ACTIVITY: As tolerated. DIET: Healthy heart, low sodium diet. DISCHARGE MEDICATIONS: 1. Ferrous sulfate 325 mg daily, 30 tablets dispensed. 2. Diflucan 200 mg daily, 12 tablets dispensed for a total of a 14 day course of antibiotics. 3. Lisinopril 20 mg daily, 30 tablets dispensed. 4. Metoprolol succinate 50 mg daily, 30 tablets dispensed. 5. Protonix 40 mg twice a day, 60 tablets dispensed.
[2017-08-03 11:49] VITALS: BP 171/77; TEMP 99.7
== END 2017-08-03 12:40 | disposition home or self-care (01) | DRG 374 ==
LOC: ERS 00:57 → 2SW 03:20 → ONC 08-01 18:27
PROVIDERS: ADMIT Internal Medicine Infectious Disease; ATTEND Internal Medicine Infectious Disease
PROC: 30233N1 Transfusion of Nonautologous Red Blood Cells into Peripheral Vein, Percutaneous Approach (ICD-10-PCS; 2017-07-31)
PROC: 0DB68ZX Excision of Stomach, Via Natural or Artificial Opening Endoscopic, Diagnostic (ICD-10-PCS; principal; 2017-08-01)
DX: C16.9 Malignant neoplasm of stomach, unspecified (principal); E43 Unspecified severe protein-calorie malnutrition; K31.1 Adult hypertrophic pyloric stenosis; D50.0 Iron deficiency anemia secondary to blood loss (chronic); F17.210 Nicotine dependence, cigarettes, uncomplicated; K92.2 Gastrointestinal hemorrhage, unspecified; I10 Essential (primary) hypertension; K20.8 Other esophagitis; R59.0 Localized enlarged lymph nodes
CPT/HCPCS: 36415; 36430; 71250; 74177; 80053; 82728; 83540; 83550; 85025; 85060; 86850; 86900; 86901; 88305; 88312; 88377; 99406; G8978-GP-CI; G8979-GP-CI; G8980-GP-CI; G8987-GO-CI; G8988-GO-CI; G8989-GO-CI; J0360; J1450; J1940; J2704; P9016; S0028

== ENCOUNTER 2017-08-11 10:19 | Outpatient (CLI) | payer MEDICARE, MEDICAID ==
--- NOTE | 2017-08-11 12:45 | ULT ---
RIGHT LOWER EXTREMITY VENOUS ULTRASOUND: HISTORY: Right leg pain for a while. TECHNIQUE: Multiplanar ortiz-scale and color Doppler images were obtained in a right lower extremity venous ultra sound. Spectral analysis of the Doppler waveforms was performed. FINDINGS: There is visible thrombus within the right common femoral vein, profunda femoral vein, superficial fe moral vein, and popliteal vein. This also extends into the posterior tibial vein. This thrombus is incomplete and nonocclusive. IMPRESSION: Extensive deep venous thrombosis involving the right leg. POS: BEAU
== END 2017-08-11 10:20 | disposition home or self-care (01) ==
LOC: ULT 10:19
PROVIDERS: ATTEND Internal Medicine Medical Oncology
DX: I82.90 Acute embolism and thrombosis of unspecified vein (principal); I82.401 Acute embolism and thrombosis of unspecified deep veins of right lower extremity; R60.0 Localized edema; M79.604 Pain in right leg
CPT/HCPCS: J1644

== ENCOUNTER 2017-08-11 11:45 | Day surgery (SDC) | payer MEDICARE, MEDICAID ==
--- NOTE | 2017-08-11 19:37 | OP ---
PREOPERATIVE DIAGNOSIS: Deep venous thrombosis of right leg with contraindication to anticoagulation . PREOPERATIVE DIAGNOSIS: Deep venous thrombosis of right leg with contraindication to anticoagulation . PROCEDURE: Insertion of TrapEase IVC filter. SURGEON: Kareem Caballero M.D. ANESTHESIA: 1% lidocaine. CONTRAST: 20 mL. FLUOROSCOPY: 1.1 minutes. PROCEDURE IN DETAIL: After prepping and draping the left groin, a micropuncture needle was used with ultrasound guidance to puncture the femoral vein to first pass. After wire was inserted, the microp uncture catheter was inserted and venography was obtained demonstrating no thrombus within the left i liac system or the inferior vena cava. The 0.035 wire and dilator and sheath were passed and venacav ogram was obtained to the renal veins, which had been also determined to be at the mid L2 level. Fol lowing this, the cava diameter was satisfactory. The TrapEase filter deployed and this filter was th en deployed at L2-L3 interspace. The patient tolerated the procedure well.
== END 2017-08-11 13:35 | disposition home or self-care (01) ==
LOC: CCL 11:45
PROVIDERS: ATTEND Thoracic Surgery (Cardiothoracic Vascular Surgery)
PROC: 06H03DZ Insertion of Intraluminal Device into Inferior Vena Cava, Percutaneous Approach (ICD-10-PCS; principal; 2017-08-11)
DX: I82.4Z1 Acute embolism and thrombosis of unspecified deep veins of right distal lower extremity (principal); I10 Essential (primary) hypertension; D50.9 Iron deficiency anemia, unspecified; F17.210 Nicotine dependence, cigarettes, uncomplicated; Z79.899 Other long term (current) drug therapy; Z98.890 Other specified postprocedural states
CPT/HCPCS: 37191; 76942; C1769; J1644

== ENCOUNTER 2017-09-11 15:30 | Observation (INO) | payer MEDICARE, MEDICAID ==
[2017-09-11 16:28] LABS: #Basophils 0.1 thou/uL (0.0-0.2); #Eosinphils 0.1 thou/uL (0.0-0.7); #Lymphocytes 3.8 thou/uL (1.20-3.40); #Monocytes 0.8 thou/uL (0.11-0.59); #Neutrophils 8.2 thou/uL (1.40-6.50); %Basophils 0.6 % (0.0-1.0); %Eosinophils 0.4 % (0.0-10.0); %Lymphocytes 29.5 % (21.0-51.0); %Monocytes 5.9 % (0.0-10.0); %Neutrophils 63.5 % (42.0-75.0); Hemoglobin 4.1 g/dL (12.0-16.0); Mean Corpuscular HGB CONC 27.4 g/dL (32.0-36.0); Mean Corpuscular Hemoglobin 21.2 pg (27.0-31.0); Mean Corpuscular Volume 77.5 fl (81.0-99.0); Mean Platelet Volume 7.9 fL (7.4-10.4); Platelet Count 293 thou/uL (130-400); RBC Distribution Width 23.1 % (11.5-14.5); Red Blood Cell (RBC) Count 1.94 mill/uL (4.20-5.40); White Blood Cell (WBC) Count 12.8 thou/uL (4.8-10.8)
[2017-09-11 16:30] LABS: INR-International Normal Ratio 1.1; PTT 25.3 SEC (22.9-36.1); Prothrombin Time 14.3 SEC (12.0-14.7)
[2017-09-11 16:40] LABS: Anisocytosis MODERATE=16-30 cells (100X) (0-5/hpf); Elliptocytes SLIGHT = 2-5 cells (100X) (0-1/hpf); Hypochromia MODERATE=16-30 cells (100X) (0-5/hpf); Large Platelets SLIGHT; MDiff Complete? YES; Microcytosis SLIGHT = 6-15 cells (100X) (0-5/hpf); Ovalocytes SLIGHT = 2-5 cells (100X) (0-1/hpf); PLT Morphology Comment Appears Adequate; Polychromasia MODERATE = 3-4 cells (100X) (0-2/hpf); Schistocytes SLIGHT = 2-5 cells (100X) (0-1/hpf); Spherocytes SLIGHT = 1-5 cells (100X) (None Seen); Stomatocytes SLIGHT = 2-5 cells (100X) (0-1/hpf); Target Cells SLIGHT = 2-5 cells (100X) (0-1/hpf)
[2017-09-11 16:47] LABS: ALT (SGPT) Less than 7 U/L (8-55); AST (SGOT) 12 U/L (5-34); Albumin 2.8 g/dL (3.4-4.8); Alkaline Phosphatase 54 U/L (40-150); Anion Gap 10 mmol/L (10-20); BUN (Urea Nitrogen) 9 mg/dL (9.8-20.1); Bilirubin, Total 0.2 mg/dL (0.2-1.2); Calc. Creatinine Clearance 0 mL/min (70-130); Calcium 8.5 mg/dL (7.8-10.44); Carbon Dioxide 30 mmol/L (23-31); Chloride 100 mmol/L (98-107); Estimated GFR-MDRD Greater than 90; Globulin 3.5 g/dL (2.4-3.5); Glucose 117 mg/dL (80-115); Potassium 3.6 mmol/L (3.5-5.1); Protein, Total 6.3 g/dL (6.0-8.3); Sodium 136 mmol/L (136-145)
--- NOTE | 2017-09-11 17:51 | HP ---
PRIMARY CARE PHYSICIAN: Through the [facility] in [place]. CHIEF COMPLAINT: "My blood count is low." HISTORY OF PRESENT ILLNESS: Ms. Guzman is a pleasant 67-year-old female, who was recently diagnose d with advanced adenocarcinoma of the stomach. She was discharged from our facility about a month ag o and since then she was told that her adenocarcinoma was beyond surgical treatment or chemotherapy. She had gone to the [facility] in order to get her medications refilled. They ordered some lab work on her and found that her hemoglobin was 4.1. She was sent over to our facility for transfu logan. She denies having any complaints. She says she does not have any chest pain or shortness of b reath. She denies any abdominal pain, no nausea, no vomiting, no change in her bowels, no blood in t he stools, etc., and in fact looks a little annoyed when we ask. REVIEW OF SYSTEMS: Constitutional: There have been no fevers, chills, no night sweats, no weight lo ss. HEENT: No headaches, no dizziness, no visual changes, no sore throat, rhinorrhea, neck pain, no adenopathy. Pulmonary: No hemoptysis, no cough, no wheezing. Cardiovascular: She denies any ches t pain, no shortness of breath, no PND, no orthopnea. Gastrointestinal: Again, no abdominal pain, n o nausea, no vomiting, no hematemesis, no blood in the stool, no melena. Her last bowel movement was today and she says it was normal. Genitourinary: No urinary frequency, hematuria, no hesitancy. N eurologic: No focal weakness, numbness, no seizures. Psychiatric: No symptoms of anxiety or depres logan. Skin and Integument: No skin changes. No rash. PAST MEDICAL HISTORY: Significant for hypertension as well as adenocarcinoma of the stomach, severe protein calorie malnutrition and history of tobacco abuse. PAST SURGICAL HISTORY: She has had an IVC filter placed. She says she has never had a . ALLERGIES: No known drug allergies. SOCIAL HISTORY: She is single. She has 1 child, her son, his name Aj Guzman and he is the [employer] [employer] decision maker. She quit smoking about a month ago and prior to that smoked about a pack a day for 30 years. She denies any alcohol use. CODE STATUS: She would like to be DNR. FAMILY HISTORY: Significant for cancer in her mother. CURRENT MEDICATIONS: Include iron sulfate 325 mg 2 tablets a day, metoprolol extended release 50 mg daily, pantoprazole 40 mg twice a day, lisinopril 20 mg daily, and fluconazole 200 mg daily. PHYSICAL EXAMINATION: GENERAL: She is alert and oriented. She appears to be in no acute distress. VITAL SIGNS: Her blood pressure was 155/70, heart rate 100, respiratory rate of 18, temperature is 9 8.4. HEENT: Pupils are equal, round, and reactive. Her sclerae are bit pale. Throat: She has got poor dentition. There is no erythema, no exudates. NECK: No adenopathy, no bruits. LUNGS: Clear. There is no wheezing, no rales. CARDIOVASCULAR: She has a normal S1 and S2. There is no S3 or S4. She did have a grade 2/6 systoli c murmur and she did have a bruit on the right side of the neck on the carotids. ABDOMEN: Soft, nontender, nondistended. Positive for bowel sounds. No rebound or guarding. EXTREMITIES: There is no clubbing, cyanosis, no edema. NEUROLOGICALLY: The exam is nonfocal. LABORATORY DATA: Her white blood cell count was 12.8, hemoglobin 4.1, hematocrit is 15, platelet cou nt is 293. INR is 1.1. Sodium 136, potassium 3.6, chloride is 100, CO2 is 30, BUN of 9, creatinine is 0.63, glucose is 117. INR is 1.1. ASSESSMENT AND PLAN: This is a pleasant 67-year-old female who is being admitted for severe anemia. She will be placed in observation. Type and cross for at least 2 units of packed RBCs. After the s econd unit, we will get an H&H. Hopefully, we can get her transfused above 7 and then discharged yashira zeny I did discuss hospice therapy for the patient since she has inoperable and recently has been told untreatable adenocarcinoma of the stomach. She says she had a meeting with hospice, but then cancel ed that because she is not interested in that at this time.
[2017-09-11] MEDS ORDERED: hydrALAZINE 20 MG/ML VIAL SLOW IVP PRN (19:56)
[2017-09-11] MEDS ORDERED: diphenhydrAMINE 25 MG CAP PO SCH (19:56)
[2017-09-11] MEDS ORDERED: HYDROcodone/Acetaminophen 5/325 mg Tablet PO PRN (19:56)
[2017-09-11] MEDS ORDERED: Acetaminophen 325 MG TAB PO PRN (19:56)
[2017-09-11] MEDS ORDERED: Temazepam 15 MG CAP PO PRN (19:56)
[2017-09-12 01:09] VITALS: BMI 20.2
[2017-09-12 05:19] LABS: #Basophils 0.1 thou/uL (0.0-0.2); #Eosinphils 0.1 thou/uL (0.0-0.7); #Lymphocytes 5.9 thou/uL (1.20-3.40); #Monocytes 0.7 thou/uL (0.11-0.59); #Neutrophils 6.3 thou/uL (1.40-6.50); %Basophils 0.5 % (0.0-1.0); %Eosinophils 0.6 % (0.0-10.0); %Monocytes 5.2 % (0.0-10.0); %Neutrophils 48.7 % (42.0-75.0); Hemoglobin 7.3 g/dL (12.0-16.0); Mean Corpuscular HGB CONC 30.8 g/dL (32.0-36.0); Mean Corpuscular Hemoglobin 25.4 pg (27.0-31.0); Mean Corpuscular Volume 82.6 fl (81.0-99.0); Mean Platelet Volume 7.9 fL (7.4-10.4); Platelet Count 260 thou/uL (130-400); RBC Distribution Width 19.5 % (11.5-14.5); Red Blood Cell (RBC) Count 2.86 mill/uL (4.20-5.40)
--- NOTE | 2017-09-12 12:41 | DIS ---
DATE OF DISCHARGE: 09/12/2017 DISCHARGE DISPOSITION: Home. Hospice will be arranged prior to discharge. custodial operations manager is elizabeth smith working on hospice. Follow up with primary care physician in 1 week. Please note patient does not have a primary care ph ysician. She was advised to contact [facility] in [place]. The patient was seen on the day of discharge. Denies any new complaints. No chest pain, shortness o f breath, palpitations. DISCHARGE MEDICATIONS: Ferrous sulfate 325 mg daily, lisinopril 20 mg daily, Toprol-XL 50 mg daily, and Protonix 40 mg b.i.d. INPATIENT CONSULTANTS: None. BRIEF HOSPITAL COURSE: The patient is a 67-year-old female who was recently diagnosed with invasive adenocarcinoma of the stomach presented to the emergency room with generalized weakness. Please refe r to the history and physical dated 09/11/2017 for further details. The patient was admitted to the hospital with diagnosis of severe symptomatic anemia with hemoglobin of 4.1. She received 2 units of PRBC. Her hemoglobin today is 7.3. She was advised to follow up [facility] primary care physician and oncologist. She is currently not on chemotherapy. She was seen by Onc ology last month. She also followed up with Dr. Ralph. Hospice will be arranged prior to discharg e. She also had EGD last month. FINAL DIAGNOSES: 1. Severe symptomatic anemia, status post 2 units PRBC. 2. Generalized weakness secondary to #1. 3. Hypertension. 4. Adenocarcinoma of the stomach. 5. Severe protein calorie malnutrition. 6. History of tobacco abuse. Plan of care was discussed with the patient in detail. She stated understanding.
[2017-09-12 15:20] VITALS: BP 144/62; TEMP 98.9
== END 2017-09-12 16:55 | disposition home or self-care (01) ==
LOC: ERS 15:30 → 2SW 16:28
PROVIDERS: ADMIT Internal Medicine; ATTEND Internal Medicine
DX: D64.9 Anemia, unspecified (principal); I10 Essential (primary) hypertension; C16.9 Malignant neoplasm of stomach, unspecified; K21.0 Gastro-esophageal reflux disease with esophagitis; E43 Unspecified severe protein-calorie malnutrition; Z68.20 Body mass index [BMI] 20.0-20.9, adult; Z66 Do not resuscitate; Z87.891 Personal history of nicotine dependence; Z79.899 Other long term (current) drug therapy; Z98.51 Tubal ligation status; Z95.828 Presence of other vascular implants and grafts; Z98.890 Other specified postprocedural states
CPT/HCPCS: 36430; 80053; 85025 ×2; 85610; 85730; 86850; 86900; 86901; 86920; 99285; G0378; P9016; 36415

== ENCOUNTER 2017-09-28 17:01 | Observation (INO) | payer MEDICARE, MEDICAID ==
[2017-09-28 18:01] LABS: Base Excess-Venous 10.6 mmol/L (-30.0-30.0); Bicarbonate (HCO3v) 34.1 mmol/L (1.0-85.0); CO2 Tension (PvCO2) 39.8 mmHg (41.0-51.0); Calcium, Ionized 0.89 mmol/L (1.12-1.32); O2 Tension (PvO2) 40.9 mmHg (35.0-45.0); Potassium 3.5 mmol/L (3.4-4.7); T. Carbon Dioxide 35.3 mmol/L (1.0-85.0); vO2 Saturation-calc 82.1 % (0.0-100.0)
[2017-09-28] MEDS ORDERED: Ondansetron HCl/PF 4 MG/2 ML Vial IVP PRN ×2 (19:26→22:34)
[2017-09-28] MEDS ORDERED: Ondansetron ODT 4 MG TAB SL PRN (19:26)
[2017-09-28] MEDS ORDERED: NS 0.9% w/ 20 MEQ KCL 1,000 ML IV SCH (19:30)
[2017-09-28 19:48] VITALS: BMI 17.6
[2017-09-28] MEDS ORDERED: NS 0.9% w/ 40 MEQ KCL 1,000 ML IV SCH (21:00)
--- NOTE | 2017-09-28 22:27 | PDOC.PN ---
- Subjective Encounter Start Date: 09/28/17 Encounter Start Time: 22:00 Patient seen and examined. Note dictated - Objective MAR Reviewed: Yes Vital Signs & Weight: Vital Signs (12 hours) Temp Pulse Pulse Resp BP BP Pulse Ox 09/28/17 22:02 98.6 F 76 18 101/49 L 93 L 09/28/17 21:44 98.3 F 77 22 H 91/46 L 93 L 09/28/17 20:00 98.3 F 77 22 H 09/28/17 19:05 98.2 F 84 18 99/52 L 100 Weight Weight 102 lb 12.8 oz I&O: 09/27/17 09/28/17 09/29/17 06:59 06:59 06:59 Intake Total 0 Balance 0 Additional Labs: Laboratory Tests 09/28/17 09/28/17 09/28/17 15:00 15:00 15:00 Hgb 3.3 L* Hct 11.3 L* POC Venous Sodium POC Venous Potassium Potassium 2.9 L* Chloride 83 L Carbon Dioxide 33 H BUN 47 H Creatinine 1.71 H CK-MB (CK-2) 1.8 Troponin I Less than 0.010 B-Natriuretic Peptide Albumin 2.3 L 09/28/17 09/28/17 15:00 17:45 Hgb Hct POC Venous Sodium 131.0 L POC Venous Potassium 3.5 Potassium Chloride Carbon Dioxide BUN Creatinine CK-MB (CK-2) Troponin I B-Natriuretic Peptide 49.0 Albumin Radiology Reviewed by me: Yes (Left foot XR - no fractures) EKG Reviewed by me: Yes (SR) Phys Exam - Physical Examination Constitutional: NAD HEENT: PERRLA, moist MMs, sclera anicteric Respiratory: no wheezing, no rales, no rhonchi, clear to auscultation bilateral Cardiovascular: RRR, no rub no heaves/pulsations Gastrointestinal: soft, non-tender, no distention, positive bowel sounds Musculoskeletal: pulses present, edema present (LLE) Neurological: non-focal, normal sensation, moves all 4 limbs Psychiatric: normal affect, A&O x 3 Skin: no rash Dx/Plan - Plan * Dictated. Review of Systems - Review of Systems Constitutional: negative: fever, chills, sweats, weakness, malaise Eyes: negative: Pain, Vision Change, Conjunctivae Inflammation, Eyelid Inflammation, Redness ENT: negative: Ear Pain, Ear Discharge, Nose Pain, Nose Discharge, Nose Congestion, Mouth Pain, Mouth Swelling, Throat Pain, Throat Swelling Respiratory: negative: Cough, Dry, Shortness of Breath, Hemoptysis, SOB with Excertion, Pleuritic Pain, Sputum, Wheezing Cardiovascular: negative: chest pain, palpitations, orthopnea, paroxysmal nocturnal dyspnea, edema, light headedness Gastrointestinal: negative: Nausea, Vomiting, Abdominal Pain, Diarrhea, Constipation, Melena, Hematochezia Genitourinary: negative: Dysuria, Frequency, Incontinence, Hematuria, Retention Musculoskeletal: Leg Pain, Foot Pain. negative: Neck Pain, Shoulder Pain, Arm Pain, Back Pain, Hand Pain Skin: negative: Rash, Lesions, Neo, Bruising, Other Neurological: negative: Weakness, Numbness, Incoordination, Change in Speech, Confusion, Seizures - Medications/Allergies Allergies/Adverse Reactions: Allergies Allergy/AdvReac Type Severity Reaction Status Date / Time No Known Allergies Allergy Verified 09/28/17 19:35 Medications: Current Medications Potassium Chloride/Sodium Chloride (Ns 0.9% W/ 40 Meq Kcl) 1,000 mls @ 50 mls/ hr IV .Q20H EDILBERTO Ondansetron HCl (Zofran) 4 mg IVP Q6H PRN PRN Reason: Nausea/Vomiting Stop: 09/29/17 05:35 Ondansetron HCl (Zofran Odt) 4 mg SL Q6H PRN PRN Reason: Nausea/Vomiting Stop: 09/29/17 05:35 Sodium Chloride (Flush - Normal Saline) 10 ml IVF PRN PRN PRN Reason: Saline Flush
[2017-09-28] MEDS ORDERED: Calcium Carbonate 500 MG ChewTAB PO PRN (22:34)
[2017-09-28] MEDS ORDERED: Milk Of Magnesia 30 ML UDCUP PO PRN (22:34)
[2017-09-28] MEDS ORDERED: Acetaminophen 325 MG TAB PO PRN (22:34)
[2017-09-28] MEDS ORDERED: Senokot 8.6 MG TAB PO PRN (22:34)
[2017-09-28] MEDS ORDERED: Mag-Al 1200 mg/1200 mg/30 ML UDCUP PO PRN (22:34)
[2017-09-28] MEDS ORDERED: Ondansetron ODT 4 MG TAB PO PRN (22:34)
--- NOTE | 2017-09-28 22:53 | HP ---
DATE OF ADMISSION: 09/28/2017 PRIMARY CARE PHYSICIAN: [facility] in [place]. CHIEF COMPLAINT: Left lower extremity pain. HISTORY OF PRESENT ILLNESS: The patient is a 67-year-old female with advanced adenocarcinoma of the stomach with recurrent anemia requiring blood transfusion, presented to the emergency room in [facility] with left leg swelling. She was discharged from this facility approximately 2 weeks ago after disla sfusing 2 units of PRBC. Over the last 3-4 days, the patient developed gradual worsening pain in the left leg and foot. She h as difficulty feeling the sole of bilateral feet. The pain initially started in the left foot and la ter on went to the right foot. She denies any fever, chills, recent immobilization, travel. No inju renae reported. She denies any chest pain, shortness of breath, palpitations, lightheadedness, or syn cope. In the emergency room, her workup was consistent with hemoglobin 3.3 with hematocrit 11.3. Her potas sium was 2.9. She received 40 mEq of potassium chloride along with IV fluid and was transferred to [facility] for hospital admission. PAST MEDICAL HISTORY: 1. Adenocarcinoma of the stomach. 2. Severe protein calorie malnutrition. 3. Recurrent anemia secondary to #1, status post blood transfusions. 4. Hypertension. 5. History of tobacco abuse. 6. DVT. PAST SURGICAL HISTORY: 1. IVC filter. 2. . ALLERGIES: No known drug allergies. CURRENT HOME MEDICATIONS: The patient is unable to recall any of her home medications. SOCIAL HISTORY: The patient continues to chew tobacco. She is a former cigarette smoker. She lives at home with her son. She was discharged recently on hospice. She is currently not under hospice. FAMILY HISTORY: Positive for cancer in her mother. CODE STATUS: Discussed with the patient, FULL CODE. She makes her own decision with the help of her son. Review of system, physical examination and laboratory findings, please refer to my progress note. IMPRESSION: 1. Severe anemia. The patient will require 2 units of packed red blood cells. 2. Left lower extremity pain, rule out deep venous thrombosis. 3. Hypertension. 4. Adenocarcinoma of the stomach. 5. Severe protein calorie malnutrition. 6. History of tobacco abuse. 7. Deconditioning. 8. Hypokalemia. 9. Hyponatremia. 10. Chronic leukocytosis. 11. Acute kidney injury. 12. Dehydration. PLAN: The patient will be monitored on the medical floor as observation admit. She will receive 2 u nits of PRBCs. We will rule out deep venous thrombosis. Her stool for occult blood is negative. He r x-ray of the foot was negative for fractures or dislocation. It showed some soft tissue swelling. DISPOSITION: Probably in 24 hours if her hemoglobin is over 7. We will consult case liner for saf e discharge planning. Plan of care was discussed with the patient. She stated understanding.
--- NOTE | 2017-09-28 23:28 | ULT ---
LEFT LOWER EXTREMITY VENOUS DUPLEX SONOGRAM: 09/28/17 HISTORY: Left leg pain and edema. FINDINGS: Internal thrombus is present within the left common femoral vein and greater saphenous junction, femo ral, deep femoral, popliteal and posterior tibial veins. There is absence of color and spectral doppl er flow. IMPRESSION: Extensive deep venous thrombosis throughout the left lower extremity. Findings were relayed to the patient's nurse by the sonographic technologist at the time of the exam. POS: BEAU
[2017-09-29 07:33] LABS: Anion Gap 12 mmol/L (10-20); BUN (Urea Nitrogen) 38 mg/dL (9.8-20.1); Calc. Creatinine Clearance 41 mL/min (70-130); Calcium 7.9 mg/dL (7.8-10.44); Carbon Dioxide 32 mmol/L (23-31); Chloride 94 mmol/L (98-107); Estimated GFR-MDRD 67; Glucose 98 mg/dL (80-115); Magnesium 2.4 mg/dL (1.6-2.6); Potassium 3.3 mmol/L (3.5-5.1); Sodium 135 mmol/L (136-145)
[2017-09-29 07:41] LABS: Platelet Count 329 thou/uL (130-400); Reticulocyte Count 3.8 % (0.5-1.5)
[2017-09-29] MEDS ORDERED: Famotidine 20 MG TAB PO SCH (09:00)
[2017-09-29] MEDS ORDERED: Docusate 100 MG CAP PO SCH (09:00)
[2017-09-29 11:36] VITALS: BP 121/57; TEMP 98.4
--- NOTE | 2017-09-29 12:27 | CON ---
DATE OF CONSULTATION: 09/29/2017 REASON FOR CONSULTATION: Gastric cancer. HISTORY OF PRESENT ILLNESS: Ms. Guzman is a 67-year-old female who presented with anemia of 3.8 in 07/2017. A CT scan showed thickening of the pylorus with multiple enlarged lymph n odes in the tha hepatis area with adjacent retroperitoneal area measuring 2.5 x 1.5 x 2 cm. She ortiz d small volume ascites. She underwent an EGD and the pathology revealed this adenocarcinoma of the p yloric antrum. She saw Dr. Benedict in the clinic in July. She was brought to our office by [facility] case workers. No family was present. Dr. Benedict had a long discussion with the patient who did n ot want chemotherapy. He felt that she would unlikely benefit and would have difficulty handling it, so she was referred to hospice, which she agreed upon. Since that time, the patient has presented t o the emergency room here twice for symptomatic anemia. On this visit, she was found by [facility] workers at home, she had a left lower extremity swelling and pain, so 911 was called and she was brought to this facility. On arrival, her hemoglobin was 3.3. She was transfused 2 units of packed RBCs with i mprovement to 7.0 of hemoglobin. Left lower extremity ultrasound showed an extensive thrombus. The patient had a right DVT at the time of diagnosis and had an IVC filter placed in July. The patien t denies any chest pain or shortness of breath. She states she does eat well. She denies any bleedi ng. PAST MEDICAL HISTORY: 1. Metastatic adenocarcinoma of the pyloric antrum. 2. History of GI bleed from gastric cancer. 3. Right lower extremity deep vein thrombosis, status post IVC filter placement. 4. Hypertension. 5. Hyperlipidemia. 6. Acid reflux. 7. Arthritis. PAST SURGICAL HISTORY: Gastric biopsies. ALLERGIES: No known drug allergies. HOME MEDICATIONS: 1. Ferrous sulfate 325 daily. 2. Zestril 20 mg daily. 3. Toprol-XL 50 mg daily. 4. Protonix 40 mg b.i.d. FAMILY HISTORY: Mother had unknown type of cancer as did her brother. SOCIAL HISTORY: Single, has one child. Former smoker. No alcohol, illicit drug use. Lives in [facility] with her son. REVIEW OF SYSTEMS: Twelve point review of systems is negative except for noted in HPI. PHYSICAL EXAMINATION: VITAL SIGNS: Temperature is 98.3, pulse is 94, respiratory rate 16, BP is 132/79. She is 100% on ro om air. GENERAL: This is a thin female, in no acute distress. HEENT: Normocephalic, atraumatic. Pupils equal and reactive to light. She has poor dentition. NECK: Supple. CARDIOVASCULAR: Regular rate and rhythm. LUNGS: Clear. ABDOMEN: Soft, nontender, bowel sounds are positive. EXTREMITIES: No clubbing, cyanosis. She has swelling in her left lower extremity. SKIN: There is no rash. HEMATOLOGIC: There is no petechia or purpura. NEUROLOGICAL: Nonfocal. PSYCHIATRIC: The patient is alert and oriented. PERTINENT LABORATORY AND X-RAYS: Current WBCs are 20.4, hemoglobin 7.0, hematocrit 22.3, platelet co unt is 329,000, 88% neutrophils, 10% lymphocytes. Sodium is 135, potassium 3.3, chloride 94, CO2 is 32, BUN is 38, creatinine 1.01, calcium 7.9, total bilirubin is 0.3, AST 25, ALT is 8, alkaline phosp hatase is 50, serum total protein is 5.7, albumin 2.3, globulin 3.4. Radiology per HPI. ASSESSMENT: 1. Metastatic adenocarcinoma of the pyloric antrum. 2. Severe anemia secondary to #1. 3. Bilateral lower extremity deep venous thromboses, status post IVC filter. DISCUSSION: The patient was transfused and admits to feeling better. We once again discussed her ga stric cancer and chemotherapy. She reiterated that she is not interested in having chemotherapy. I will consult the palliative care team for advanced directives and possible assistance at the house. If she is reluctant to hospice, she will hopefully accept palliative care assistance and I can suppor t her. Thank you for the consult.
--- NOTE | 2017-09-30 14:01 | DIS ---
DATE OF DISCHARGE: 09/29/2017 DISCHARGE DISPOSITION: Home. Patient declined hospice. INPATIENT CONSULTANTS: Oncology Service. BRIEF HOSPITAL COURSE: Patient is a 67-year-old -[place]izen [place] female with metastatic adenocarcino ma of pyloric antrum presented to the hospital with the left lower extremity pain. Please refer to tammy gauri history and physical dated 09/28/2017 for further details. The patient was admitted to the hospital with a diagnosis of severe anemia with hemoglobin of 3.3. S he received 2 units of PRBC. Her hemoglobin on the day of discharge was 7.0. She was evaluated by O ncology Service and hospice was recommended. The patient, however, declined hospice. Left lower ext remity ultrasound was positive for DVT. She has IVC filter. She is not a candidate for anticoagulat ion due to severe anemia. FINAL DIAGNOSES: 1. Left lower extremity pain secondary to deep venous thrombosis, not a candidate for anticoagulatio n. The patient already has inferior vena cava filter. 2. Severe anemia with hemoglobin 3.3. The patient received 2 units of packed red blood cells. 3. Hypertension. 4. Adenocarcinoma of the stomach. 5. Severe protein calorie malnutrition. 6. History of tobacco abuse. 7. Deconditioning. 8. Hypokalemia, repeat base met next week is recommended. Primary care physician advised to follow. 9. Hyponatremia. 10. Chronic leukocytosis. 11. Acute kidney injury on admission with a creatinine of 1.7. Creatinine improved to 1.01 with hyd ration and blood transfusion. 12. Dehydration. Plan of care was discussed with the patient. She stated understanding.
== END 2017-09-29 14:36 | disposition home or self-care (01) ==
LOC: ERS 17:01 → 2SW 18:02
PROVIDERS: ADMIT Internal Medicine; ATTEND Internal Medicine
DX: C16.3 Malignant neoplasm of pyloric antrum (principal); D63.0 Anemia in neoplastic disease; I82.403 Acute embolism and thrombosis of unspecified deep veins of lower extremity, bilateral; I10 Essential (primary) hypertension; E78.5 Hyperlipidemia, unspecified; K21.9 Gastro-esophageal reflux disease without esophagitis; M19.90 Unspecified osteoarthritis, unspecified site; F17.200 Nicotine dependence, unspecified, uncomplicated; E87.6 Hypokalemia; E86.0 Dehydration; E87.1 Hypo-osmolality and hyponatremia; D72.829 Elevated white blood cell count, unspecified; N17.9 Acute kidney failure, unspecified; Z95.828 Presence of other vascular implants and grafts; Z98.890 Other specified postprocedural states; M79.605 Pain in left leg
CPT/HCPCS: 36430 ×2; 80048; 82274; 82330; 82435; 82803; 83735; 84100; 84132; 84295; 85014 ×2; 85018; 85046; 85049; 86850; 86900; 86901; 86920; 93971; 94760; 96365; 96366; 97139; 99285; 99406; G0378; P9016 ×2; 36415; J3480; J7050